=== PATIENT | female | born 1930 | race Caucasian/White ===

== ENCOUNTER 2017-06-02 13:26 | Inpatient (IN) | payer OTHER ==
[2017-06-02 13:42] VITALS: BMI 25.2
--- NOTE | 2017-06-02 13:54 | PDOC ---
Attending Attestation - Resident Resident Name: Evangelista Savage - ED Attending Attestation I have performed the following: I have examined & evaluated the patient, The case was reviewed & discussed with the resident, I agree w/resident's findings & plan, Exceptions are as noted - HPI HPI: 06/02/17 14:20 Fall, Mechanism of injury not available - Physicial Exam PE: 06/02/17 14:21 Awake, Alert, Oriented and Cooperative. Right Hip Pain - Medical Decision Making 06/02/17 14:[address] Savage assessment and pain
[2017-06-02] MEDS ORDERED: morphine CARPU-JECT 2 MG/1 ML DISP.SYRIN IVPUSH ONE ×2 (14:04→14:51)
[2017-06-02] MEDS ORDERED: morphine CARPU-JECT 2 MG/1 ML DISP.SYRIN ONE ×3 (14:11→17:33)
--- NOTE | 2017-06-02 14:19 | PDOC ---
History of Present Illness - General Chief Complaint: Injury Stated Complaint: FALL Time Seen by Provider: 06/02/17 13:42 History Source: Patient Exam Limitations: No Limitations - History of Present Illness Initial Comments: 06/02/17 14:05 86F with glaucoma s/p surgery, distant history colon cancer s/p surgery and chemo (year unknown, before 1999) and HTN here today complaining of a fall. She states that she was unsure of how she fell, she was at the [employer] and then was on the ground. She denies any inciting event or symptom, including chest pain, shortness of breath, nausea, vomiting, or lightheadedness. She states that she did not lose consciousness, but does not remember the entire event. She 's complaining of right hip pain and right shoulder pain. She denies headache and memory loss. 06/02/17 18:40 Contact is Noe Dale: [phone] Past History - Past Medical History Allergies/Adverse Reactions: Allergies Allergy/AdvReac Type Severity Reaction Status Date / Time clindamycin phosphate Allergy Verified 06/02/17 16:02 [From Cleocin] Home Medications: Ambulatory Orders Atenolol [Tenormin -] 100 mg PO DAILY 06/02/17 Esomeprazole Magnesium [Nexium 24Hr] 2 tablet PO DAILY 06/02/17 Furosemide [Lasix] 40 mg PO DAILY 06/02/17 Cancer: Yes (colon ca) HTN: Yes Other medical history: Glaucoma, Bilat. LLE edema - Immunization History Immunization Up to Date: Yes - Psycho/Social/Smoking Cessation Hx Suicidal Ideation: No Smoking History: Unknown if ever smoked Hx Alcohol Use: No Drug/Substance Use Hx: No Substance Use Type: None Review of Systems - Review of Systems Comments:: 06/02/17 14:19 GENERAL/CONSTITUTIONAL: No fever or chills. No weakness. HEAD, EYES, EARS, NOSE AND THROAT: No change in vision. No ear pain or discharge. No sore throat. CARDIOVASCULAR: No chest pain or shortness of breath RESPIRATORY: No cough, wheezing, or hemoptysis. GASTROINTESTINAL: No nausea, vomiting, diarrhea or constipation. GENITOURINARY: No dysuria, frequency, or change in urination. MUSCULOSKELETAL: Pain in right hip and shoulder. No neck or back pain. SKIN: No rash NEUROLOGIC: No headache, vertigo, loss of consciousness, or change in strength/ sensation. ALLERGIC/IMMUNOLOGIC: No hives or skin allergy. *Physical Exam - Vital Signs Last Vital Signs Temp Pulse Resp BP Pulse Ox 97.5 F L 66 20 144/78 96 06/02/17 13:37 06/02/17 13:37 06/02/17 13:37 06/02/17 13:37 06/02/17 13:37 - Physical Exam Comments: 06/02/17 14:22 GENERAL: Awake, alert, and fully oriented, in no acute distress HEAD: No signs of trauma, normocephalic, atraumatic EYES: Right eye 3mm, Left eye 2mm, Reactive to light, EOMI, sclera anicteric, conjunctiva clear ENT: Auricles normal inspection, hearing grossly normal, nares patent, oropharynx clear without exudates. Moist mucosa NECK: Normal ROM, supple, no lymphadenopathy, JVD, or masses LUNGS: No distress, speaks full sentences, clear to auscultation bilaterally HEART: Regular rate and rhythm, normal S1 and S2, no murmurs, rubs or gallops, peripheral pulses normal and equal bilaterally. ABDOMEN: Soft, nontender, normoactive bowel sounds. No guarding, no rebound. No masses R SHOULDER: Tender to palpation, range of motion intact, neurovascularly intact R HIP: Tender to palpation, refuses movement secondary to pain, legs equal length. Leg not rotated. Neurovascularly intact. NEUROLOGICAL: Cranial nerves II through XII grossly intact. Normal speech, no focal sensorimotor deficits SKIN: Warm, Dry, normal turgor, no rashes or lesions noted. Heart Score/ECG Review - History History: Moderately suspicious - Electrocardiogram EKG: Normal - Age Age: >/= 65 - Risk Factors Risk Factors Heart Score: Yes Hx Hypertension - ECG Intrepretation Comment:: 06/02/17 14:34 Normal sinus rhythm and rate. Normal axis. ST inversion in III. No ST elevations. QTc 447. VA 146. ED Treatment Course - LABORATORY CBC & Chemistry Diagram: 06/02/17 14:51 06/02/17 14:51 - RADIOLOGY Radiology Studies Ordered: Category Date Time Status HEAD CT WITHOUT CONTRAST [CT] Stat CT Scan 06/02/17 14:03 Ordered CHEST X-RAY PORTABLE* [RAD] Stat Radiology 06/02/17 14:02 Ordered HIP & PELVIS-RIGHT [RAD] Stat Radiology 06/02/17 14:03 Ordered SHOULDER-RIGHT [RAD] Stat Radiology 06/02/17 14:03 Ordered Medical Decision Making - Medical Decision Making 06/02/17 14:27 86F with history of HTN, cataracts s/p bilateral surgery and colon cancer s/p surgery and chemo here today complaining of a fall. No obvious injury noted. Pupils not equal in size, but reactive and likely secondary to bilateral cataract surgeries. Will do ACS workup with CT head, x-ray of right shoulder and hip. Given 2mg morphine. 06/02/17 15:45 Cr 1.7. Baseline unknown. Given 1L NS. 06/02/17 15:48 An AP view the pelvis reveals no sign of a gross fracture, subluxation bone destruction. The hips appear symmetrical. Significant arthritic changes are not seen. The SI joints are patent with reactive sclerosis. Degenerative changes are noted in the spine with a slight scoliosis. There is urine filled bladder with a nonspecific bowel pattern. Detailed views of the right hip reveal no sign of fracture, subluxation or bone destruction. There are soft tissue vascular calcifications. If symptoms persist, further imaging may be of help. Impression: No acute pathology appreciated CXR, R shoulder are unremarkable. 06/02/17 18:10 CT Pelvis ordered due to patient unable to move right hip. Given 4mg more of morphine. Pelvis CT shows fracture on my read, awaiting official read from radiology for exact description. Head CT: 1. There is no evidence of an acute intracranial process, intracranial hemorrhage or mass effect. 2. Ventricular size is concordant with the degree of atrophy. 3. The visualized portions of the orbits, paranasal and mastoid sinuses are unremarkable. 4. No evidence of fracture. 06/02/17 18:27 1. Mildly displaced fractures of the right superior and inferior pubic rami. The superior pubic ramus fracture is near the junction with the right acetabulum but does not clearly extend into the acetabulum. If further imaging is required, MRI may be helpful. 2. No evidence of fracture of the proximal femurs. 3. Degenerative change lower lumbar spine, SI joints bilaterally and pubic symphysis. 4. Colonic diverticulosis. 06/02/17 18:[address] Saba. No surgery at this time. Pain control and weight bearing as tolerated. Pain still not controlled, given 1mg dilaudid. *DC/Admit/Observation/Transfer Diagnosis at time of Disposition: Fracture of pelvis Qualifiers: Encounter type: initial encounter - Discharge Dispostion Condition at time of disposition: Stable Admit: Yes - Attestations Physician Attestion: 06/02/17 19:04 I, Dr. Evangelista Savage, attest that this document has been prepared under my direction and personally reviewed by me in its entirety. I further attest, that it accurately reflects all work, treatment, procedures and medical decision -making performed by me.
[2017-06-02 15:12] LABS: EOSINOPHIL 1.7 % (0-4.5); MCH 30.7 pg (25.7-33.7); MCHC 32.7 g/dl (32.0-36.0); MEAN CELL VOLUME 93.9 fl (80-96); MEAN PLT VOLUME 8.9 fl (7.5-11.1); NEUTROPHILS 74.6 % (42.8-82.8); PLATELET COUNT 189 K/MM3 (134-434); RDW 13.4 % (11.6-15.6); WHITE BLOOD COUNT 8.8 K/mm3 (4.0-10.0)
[2017-06-02 15:23] LABS: URINE APPEARANCE CLEAR; URINE BILIRUBIN NEGATIVE (NEGATIVE); URINE BLOOD NEGATIVE (NEGATIVE); URINE COLOR COLORLESS; URINE GLUCOSE (UA) NEGATIVE (NEGATIVE); URINE KETONE NEGATIVE (NEGATIVE); URINE LEUK ESTERASE NEGATIVE (NEGATIVE); URINE NITRITE NEGATIVE (NEGATIVE); URINE PROTEIN NEGATIVE (NEGATIVE); URINE UROBILINOGEN NEGATIVE mg/dL (0.2-1.0)
[2017-06-02 15:24] LABS: ANION GAP 6 (8-16); BILIRUBIN,TOTAL 0.4 mg/dL (0.2-1.0); CALCIUM 9.2 mg/dL (8.5-10.1); CO2 29 mmol/L (21-32); CREATININE 1.7 mg/dL (0.55-1.02); GLUCOSE,RANDOM 90 mg/dL (74-106); MAGNESIUM 2.4 mg/dL (1.8-2.4); SGOT/AST 35 U/L (15-37); SGPT/ALT 52 U/L (12-78); TOT PROT 7.3 g/dl (6.4-8.2)
[2017-06-02 15:27] LABS: ALK PHOS 63 U/L (45-117); CPK 202 IU/L (26-192); TROPONIN I < 0.02 ng/ml (0.00-0.05)
[2017-06-02 15:32] LABS: INR 0.94 (0.82-1.09); PROTHROMBIN TIME (PATIENT) 10.3 SEC (9.98-11.88)
[2017-06-02] MEDS ORDERED: SODIUM CHLORIDE 1,000 ML IV STA (15:44)
[2017-06-02] MEDS ORDERED: morphine CARPU-JECT 4 MG/1 ML DISP.SYRIN IVPUSH ONE (15:59)
[2017-06-02] MEDS ORDERED: HYDROmorphone HCL CARPU-JECT 1 MG/1 ML DISP.SYRIN IVPUSH ONE (18:51)
[2017-06-02] MEDS ORDERED: HYDROmorphone HCL CARPU-JECT 1 MG/1 ML DISP.SYRIN ONE (19:00)
--- NOTE | 2017-06-02 19:29 | EKG ---
Test Reason : Blood Pressure : / mmHG Vent. Rate : 065 BPM Atrial Rate : 065 BPM P-R Int : 146 ms QRS Dur : 082 ms QT Int : 430 ms P-R-T Axes : 052 -23 023 degrees QTc Int : 447 ms POOR DATA QUALITY, INTERPRETATION MAY BE ADVERSELY AFFECTED NORMAL SINUS RHYTHM MODERATE VOLTAGE CRITERIA FOR LVH, MAY BE NORMAL VARIANT CANNOT RULE OUT SEPTAL INFARCT , AGE UNDETERMINED ABNORMAL ECG NO PREVIOUS ECGS AVAILABLE Confirmed by PEGGY CASTELAN, JULIO ([id number]) on 06/02/2017 7:29:31 PM Referred By: Confirmed By:JULIO WOODS MD
[2017-06-02] MEDS ORDERED: ONDANSETRON 4 MG/2 ML VIAL IVPUSH ONE (19:37)
--- NOTE | 2017-06-02 19:37 | PDOC ---
*Physical Exam - Vital Signs Last Vital Signs Temp Pulse Resp BP Pulse Ox 97.5 F L 64 20 163/68 98 06/02/17 13:37 06/02/17 17:51 06/02/17 17:51 06/02/17 17:51 06/02/17 17:51 ED Treatment Course - LABORATORY CBC & Chemistry Diagram: 06/02/17 14:51 06/02/17 14:51 - ADDITIONAL ORDERS Additional order review: Laboratory Results 06/02/17 06/02/17 06/02/17 15:02 14:51 14:51 INR 0.94 Sodium 141 Potassium 4.1 Chloride 106 Carbon Dioxide 29 Anion Gap 6 L BUN 25 H Creatinine 1.7 H Creat Clearance w eGFR 28.63 Random Glucose 90 Calcium 9.2 Magnesium 2.4 Total Bilirubin 0.4 AST 35 ALT 52 Alkaline Phosphatase 63 Creatine Kinase 202 H Creatine Kinase Index 1.7 CK-MB (CK-2) 3.538 Troponin I < 0.02 Total Protein 7.3 Albumin 4.0 Urine Color Colorless Urine Appearance Clear Urine pH 6.0 Ur Specific [place] 1.010 Urine Protein Negative Urine Glucose (UA) Negative Urine Ketones Negative Urine Blood Negative Urine Nitrite Negative Urine Bilirubin Negative Urine Urobilinogen Negative Ur Leukocyte Esterase Negative 06/02/17 14:51 RBC 4.43 MCV 93.9 MCHC 32.7 RDW 13.4 MPV 8.9 Neutrophils % 74.6 Lymphocytes % 13.6 Monocytes % 9.1 Eosinophils % 1.7 Basophils % 1.0 - Medications Given in the ED: ED Medications Discontinued Medications Generic Name Dose Route Start Last Admin Trade Name Cortes PRN Reason Stop Dose Admin Hydromorphone HCl 1 mg 06/02/17 18:51 06/02/17 19:13 Dilaudid Injection - IVPUSH 06/02/17 18:52 1 mg ONCE ONE Administration Sodium Chloride 1,000 mls @ 1,000 mls/hr 06/02/17 15:44 06/02/17 17:50 Normal Saline - IV 06/02/17 16:43 1,000 mls/hr ASDIR STA Administration Morphine Sulfate 2 mg 06/02/17 14:04 06/02/17 14:50 Morphine Injection - IVPUSH 06/02/17 14:05 2 mg ONCE ONE Administration Morphine Sulfate 2 mg 06/02/17 14:51 06/02/17 15:59 Morphine Injection - IVPUSH 06/02/17 14:52 2 mg ONCE ONE Administration Morphine Sulfate 4 mg 06/02/17 15:59 06/02/17 17:50 Morphine Injection - IVPUSH 06/02/17 16:00 4 mg ONCE ONE Administration Medical Decision Making - Medical Decision Making 06/02/17 19:36 Patient is an 86 yo F signed out to me by the day team (Dr. Savage) hx of HTN, HLD Dx Pubic rami fx, Difficult pain management (1 mg Dilaudid @ 18:30) Ortho consulted, Medicine notified - Manage pain - Admit to medicine 06/02/17 19:38 Patient complaining of nausea, Checked QC on EKG, Zofran 4mg IV 06/02/17 21:16 Patient pain well managed but still complaining of nausea, Dr. Estrada gave 250 ml NS and Reglan 10 mg Patient accepted by medicine to [facility] inpatient *DC/Admit/Observation/Transfer Diagnosis at time of Disposition: Pelvic fracture Qualifiers: Encounter type: initial encounter Pelvic bone location: unspecified part of pelvis Fracture type: closed Fracture alignment: nondisplaced Qualified Code(s) : S32.9XXA - Fracture of unspecified parts of lumbosacral spine and pelvis, initial encounter for closed fracture - Discharge Dispostion Condition at time of disposition: Stable Admit: Yes - Referrals Referrals: STAFF,NOT ON [Primary Care Provider] - - Patient Instructions - Post Discharge Activity - Attestations Physician Attestion: 06/02/17 21:20 I, Dr. Niles Ramirez, attest that this document has been prepared under my direction and personally reviewed by me in its entirety. I further attest, that it accurately reflects all work, treatment, procedures and medical decision -making performed by me.
[2017-06-02] MEDS ORDERED: ONDANSETRON 4 MG/2 ML VIAL ONE (19:48)
[2017-06-02] MEDS ORDERED: ONDANSETRON 4 MG/2 ML VIAL IVPB PRN (19:57)
[2017-06-02] MEDS ORDERED: morphine CARPU-JECT 4 MG/1 ML DISP.SYRIN IVPUSH PRN ×2 (20:02→20:15)
--- NOTE | 2017-06-02 20:06 | HP ---
Admitting History and Physical - Admission History of Present Illness: 86yo F with past history of HTN and Hyperlipidemia who is presenting to the ED for hip pain s/p mechanical fall in [employer]. Pt states she was walking normally and then was on the ground without any thought. She knows she did not hit her head and she is not on anticoagulation. Denies any bleeding, lightheadedness/dizziness leading up to the fall, urinary incontinence, or SOB leading to the fall. Pt is currently pain controlled, however is nauseous from the pain medications given in the ED. ER Course notable for: 1) Head CT: No evidence of an acute intracranial process/hemorrhage/mass effect. No evidence of fracture. 2) Pelvis CT: Mildly displaced fractures of the right superior and inferior pubic rami; superior pubic ramus fracture is near the junction with the right acetabulum but does not clearly extend into the acetabulum. 3) Morphine 8mg total and Dilaudid 1mg total for pain control administered 4) Dr Saba notified and discussed pt: No surgery at this time. Pain control and weight bearing as tolerated. 5) EKG - NSR @65bpm; no ST abnormalities noted History Source: Patient Limitations to Obtaining History: No Limitations - Past Medical History Cardiovascular: Yes: HTN, Hyperlipdemia - Smoking History Smoking history: Unknown if ever smoked - Alcohol/Substance Use Hx Alcohol Use: No Home Medications - Allergies Allergies/Adverse Reactions: Allergies Allergy/AdvReac Type Severity Reaction Status Date / Time clindamycin phosphate Allergy Verified 06/02/17 16:02 [From Cleocin] - Home Medications Home Medications: Ambulatory Orders Atenolol [Tenormin -] 100 mg PO DAILY 06/02/17 Esomeprazole Magnesium [Nexium 24Hr] 2 tablet PO DAILY 06/02/17 Furosemide [Lasix] 40 mg PO DAILY 06/02/17 Physical Examination Vital Signs: Vital Signs Temperature 97.5 F L 06/02/17 13:37 Pulse Rate 64 06/02/17 17:51 Respiratory Rate 20 06/02/17 17:51 Blood Pressure 163/68 06/02/17 17:51 O2 Sat by Pulse Oximetry (%) 98 06/02/17 17:51 Constitutional: Yes: No Distress, Calm Eyes: Yes: Conjunctiva Clear, EOM Intact, PERRL. No: Sclera Icterus HENT: Yes: Atraumatic, Normocephalic Cardiovascular: Yes: Regular Rate and Rhythm. No: JVD, Murmur Respiratory: Yes: Regular, CTA Bilaterally, On Nasal O2 (2L NC). No: Rales, Rhonchi, SOB, Wheezes Gastrointestinal: Yes: Normal Bowel Sounds, Soft. No: Hepatomegaly, Splenomegaly, Tenderness Edema: No Neurological: Yes: Alert, Oriented Psychiatric: Yes: Alert, Oriented Labs: CBC, BMP 06/02/17 14:51 06/02/17 14:51 Imaging - Results Chest X-ray: Image Reviewed Cat Scan: Image Reviewed EKG: Image Reviewed Assessment/Plan 86yo F pmhx HTN and HPL s/p mechanical fall with no head trauma or bleeding noted. Not on anticoagulation. Nondisplaced pelvic fx of ischial spine on R. 1) Nondisplaced Pelvic fracture of R pubic rami --H/H stable --Pt already discussed with Dr. Saba -- pain control and early ambulation --Physical therapy; will coordinate with pain medication for better compliance --Pain control --Percocet 5/325mg PO q6h PRN for pain 3-7 in scale --Morphine 4mg IVPush PRN for pain 7 or greater --Senna Plus ordered for PRN constipation due to pain medications --Zofran 4mg PRN for narcotic associated nausea 2) Elevated Creatine --No previous records for comparison --Suspect TA in the setting of dehydration --Will trend Cr. --Avoid nephrotoxic agents --Holding home Lasix 40mg PO daily --If persists in morning will trend urine electrolytes 3) HTN --Continue home Atenolol 100mg PO qDaily FEN: Fluids: Not indicated currently; tolerating PO Electrolyte abnormalities: None Nutrition: Regular diet PPX DVT - Heparin 5000U SQ q8 GI - Not indicated currently Dispo: Admit to M/S Visit type - Emergency Visit Emergency Visit: Yes Care time: The patient presented to the Emergency Department on the above date and was hospitalized for further evaluation of their emergent condition. - New Patient This patient is new to me today: Yes Date on this admission: 06/02/17 - Critical Care Critical Care patient: No
[2017-06-02] MEDS ORDERED: DOCUSATE SODIUM 100 MG CAPSULE (FP) PO PRN (20:22)
[2017-06-02] MEDS ORDERED: SENNOSIDES/DOCUSATE COMBO (SENNA PLUS) TABLET (UD) PO PRN (20:22)
[2017-06-02] MEDS ORDERED: SODIUM CHLORIDE 0.9% 500 ML INFUS.BAG IV ONE (20:31)
[2017-06-02] MEDS ORDERED: METOCLOPRAMIDE HCL INJECTION 10 MG/2 ML VIAL IVPB ONE (20:31)
[2017-06-02] MEDS ORDERED: METOCLOPRAMIDE HCL INJECTION 10 MG/2 ML VIAL ONE (20:36)
[2017-06-02] MEDS ORDERED: oxyCODONE HCL 5 MG TABLET PO PRN (20:39)
[2017-06-02] MEDS ORDERED: ACETAMINOPHEN 325 MG TABLET (FP) PO PRN (20:39)
--- NOTE | 2017-06-02 21:57 | PN ---
Teaching Attending Note Name of Resident: Ari Romero ATTENDING PHYSICIAN STATEMENT I saw and evaluated the patient. I reviewed the resident's note and discussed the case with the resident. I agree with the resident's findings and plan as documented. SUBJECTIVE: 86 year old female presents s/p mechanical fall while in [employer]. Patient has poor recollection of events. PMH HTN HLD OBJECTIVE: Vital Signs Temperature 97.5 F L 06/02/17 13:37 Pulse Rate 64 06/02/17 20:18 Respiratory Rate 20 06/02/17 20:18 Blood Pressure 130/61 06/02/17 20:18 O2 Sat by Pulse Oximetry (%) 95 06/02/17 20:18 HENT: Yes: Atraumatic, Normocephalic Cardiovascular: Yes: Regular Rate and Rhythm. No: JVD, Murmur Respiratory: Yes: Regular, CTA Bilaterally, On Nasal O2 (2L NC). No: Rales, Rhonchi, SOB, Wheezes Gastrointestinal: Yes: Normal Bowel Sounds, Soft. No: Hepatomegaly, Splenomegaly, Tenderness Edema: No Neurological: Yes: Alert, Oriented Psychiatric: Yes: Alert, Oriented CBC, BMP 06/02/17 14:51 06/02/17 14:51 Urine Test Results Urine Color Colorless 06/02/17 15:02 Urine Appearance Clear 06/02/17 15:02 Urine pH 6.0 (5.0-8.0) 06/02/17 15:02 Ur Specific [place] 1.010 (1.005-1.025) 06/02/17 15:02 Urine Protein Negative (NEGATIVE) 06/02/17 15:02 Urine Glucose (UA) Negative (NEGATIVE) 06/02/17 15:02 Urine Ketones Negative (NEGATIVE) 06/02/17 15:02 Urine Blood Negative (NEGATIVE) 06/02/17 15:02 Urine Nitrite Negative (NEGATIVE) 06/02/17 15:02 Urine Bilirubin Negative (NEGATIVE) 06/02/17 15:02 Ur Leukocyte Esterase Negative (NEGATIVE) 06/02/17 15:02 CT- Mildly displaced fractures of the right superior and inferior pubic rami; superior pubic ramus fracture is near the junction with the right acetabulum but does not clearly extend into the acetabulum. ASSESSMENT AND PLAN: 1. Pelvic fracture- stable . No need for surgical intervention according to ortho. - pain control as ordered with Percocet - IV morphine prn for breakthrough - PT eval 2. ARF - - possibly secondary to dehydration 3. DVT PPX heparin SC
[2017-06-02] MEDS: HEPARIN NA (PORCINE) 5,000 UNITS/ML 1ML VIAL SQ SCH (23:40)
[2017-06-03] MEDS: oxyCODONE HCL 5 MG TABLET PO PRN ×2 (01:09→06:59)
[2017-06-03] MEDS: ACETAMINOPHEN 325 MG TABLET (FP) PO PRN ×2 (01:10→06:58)
[2017-06-03] MEDS: HEPARIN NA (PORCINE) 5,000 UNITS/ML 1ML VIAL SQ SCH ×3 (05:49→21:20)
[2017-06-03 08:14] LABS: MCH 31.4 pg (25.7-33.7); MCHC 33.4 g/dl (32.0-36.0); MEAN CELL VOLUME 93.9 fl (80-96); MEAN PLT VOLUME 8.6 fl (7.5-11.1); PLATELET COUNT 179 K/MM3 (134-434); RDW 13.3 % (11.6-15.6); WHITE BLOOD COUNT 8.9 K/mm3 (4.0-10.0)
[2017-06-03 08:34] LABS: ANION GAP 7 (8-16); CALCIUM 8.2 mg/dL (8.5-10.1); CO2 28 mmol/L (21-32); CREATININE 1.3 mg/dL (0.55-1.02); GLUCOSE,RANDOM 115 mg/dL (74-106)
--- NOTE | 2017-06-03 09:02 | CON.ORTH ---
Consult Reason for Consultation:: right pelvic fx - Past Medical History Cardio/Vascular: Yes: HTN, Hyperlipdemia - Alcohol/Substance Use Hx Alcohol Use: No - Smoking History Smoking history: Never smoked Home Medications - Allergies Allergies/Adverse Reactions: Allergies Allergy/AdvReac Type Severity Reaction Status Date / Time clindamycin phosphate Allergy Verified 06/02/17 16:02 [From Cleocin] - Home Medications Home Medications: Ambulatory Orders Atenolol [Tenormin -] 100 mg PO DAILY 06/02/17 Esomeprazole Magnesium [Nexium 24Hr] 2 tablet PO DAILY 06/02/17 Furosemide [Lasix] 40 mg PO DAILY 06/02/17 Physical Exam for Ortho Vital Signs: Vital Signs Temperature 97.8 F 06/03/17 05:00 Pulse Rate 64 06/03/17 05:00 Respiratory Rate 20 06/03/17 06:43 Blood Pressure 118/52 06/03/17 05:00 O2 Sat by Pulse Oximetry (%) 96 06/03/17 06:43 Labs: CBC, BMP 06/03/17 07:00 06/03/17 07:00 INR, PTT INR 0.94 (0.82-1.09) 06/02/17 14:51 - Lower Extremity Pelvis: Yes: Right, Limited ROM, Pain, Tenderness, Other (nvi) Imaging - Results X-ray: Report Reviewed, Image Reviewed Assessment/Plan 86yo F with past history of HTN and Hyperlipidemia who is presenting to the ED for hip pain s/p mechanical fall in [employer]. Pt states she was walking normally and then was on the ground without any thought. She knows she did not hit her head and she is not on anticoagulation. Denies any bleeding, lightheadedness/dizziness leading up to the fall, urinary incontinence, or SOB leading to the fall. Pt is currently pain controlled, however is nauseous from the pain medications given in the ED. a/p right superior and inferior pubic rami fx PT eval wbat pain control dvt ppx will follow d/w Dr. Saba
[2017-06-03] MEDS ORDERED: FUROSEMIDE 40 MG TABLET (FP) PO SCH (10:00)
[2017-06-03] MEDS ORDERED: PT OWN MED DRAWER 7, Y5N ONE (10:18)
[2017-06-03] MEDS: PANTOPRAZOLE 40 MG TABLET (FP) PO SCH (10:23)
[2017-06-03] MEDS: ATENOLOL 50 MG TABLET (FP) PO SCH (10:23)
--- NOTE | 2017-06-03 13:18 | PN ---
Teaching Attending Note Name of Resident: Vega Womack ATTENDING PHYSICIAN STATEMENT I saw and evaluated the patient. I reviewed the resident's note and discussed the case with the resident. I agree with the resident's findings and plan as documented. SUBJECTIVE:states that her pain is currently controlled however she has not been out of bed since arrival to the hospital. states she recalls the events of yesterday that she lost her footing while at [employer]. she denies any symptoms prior to or after the fall. denies striking her head, LOC, dizzyness, palpitations, CP, fever, chills, N/V/C/D. no recent changes to her home medications. OBJECTIVE: Last Vital Signs Temp Pulse Resp BP Pulse Ox 97.7 F 59 L 20 120/60 96 06/03/17 09:37 06/03/17 09:37 06/03/17 09:37 06/03/17 09:37 06/03/17 09:00 General NAD CV S1 S2 RRR no murmur/rub/gallop Lungs CTA B/L no wheezing/rales/rhonchi Extremities pelvis stable. pulses 2+ B/L. strength 4/5 RLE and 5/5 LLE. sensation grossly intact ASSESSMENT AND PLAN: 86yo F wtih PMH HTn and dyslipidemia presented to the ER s/p mechanical fall 1. R superior and inferior rami fracture- s/p mechanical fall. ortho evaluated and no indication for intervention at this time. PT eval. pain control. may require [facility]STEL 2. TA- dehydration vs medication induced. on lasix. will hold at this time. trend Cr. unknown baseline. call PMD for old labs. avoid nephrotoxic agents 3. HTN- controlled. monitor while off diuretic. cont atenolol 4. Dyslipidemia- statin 5. DVT ppx- hep sq 6. d/c pending PT eval. home vs CRISTEL
--- NOTE | 2017-06-03 18:25 | PN ---
<Vega Womack - Last Filed: 06/03/17 18:25> Physical Exam: SUBJECTIVE: Patient seen and examined OBJECTIVE: Vital Signs Period Temp Pulse Resp BP Sys/Gallo Pulse Ox Last 24 Hr 97.4 F-98.2 F 57-66 18-20 112-143/52-78 95-96 GENERAL: The patient is awake, alert, and fully oriented, in no acute distress. HEAD: Normal with no signs of trauma. EYES: PERRL, extraocular movements intact, sclera anicteric, conjunctiva clear. No ptosis. ENT: Ears normal, nares patent, oropharynx clear without exudates, moist mucous membranes. NECK: Trachea midline, full range of motion, supple. LUNGS: Breath sounds equal, clear to auscultation bilaterally, no wheezes, no crackles, no accessory muscle use. HEART: Regular rate and rhythm, S1, S2 without murmur, rub or gallop. ABDOMEN: Soft, nontender, nondistended, normoactive bowel sounds, no guarding, no rebound, no hepatosplenomegaly, no masses. EXTREMITIES: 2+ pulses, warm, well-perfused, no edema. NEUROLOGICAL: Cranial nerves II through XII grossly intact. Normal speech, gait not observed. PSYCH: Normal mood, normal affect. SKIN: Warm, dry, normal turgor, no rashes or lesions noted Laboratory Results - last 24 hr 06/03/17 06/03/17 07:00 07:00 WBC 8.9 RBC 3.77 Hgb 11.8 D Hct 35.4 MCV 93.9 MCH 31.4 MCHC 33.4 RDW 13.3 Plt Count 179 MPV 8.6 Sodium 142 Potassium 4.1 Chloride 107 Carbon Dioxide 28 Anion Gap 7 L BUN 24 H Creatinine 1.3 H D Random Glucose 115 H D Calcium 8.2 L Active Medications Generic Name Dose Route Start Last Admin Trade Name Freq PRN Reason Stop Dose Admin Acetaminophen 650 mg 06/02/17 21:01 06/03/17 06:58 Tylenol - PO 650 mg Q6H PRN Administration ANY PAIN BELOW 7 Atenolol 100 mg 06/03/17 10:00 06/03/17 10:23 Tenormin - PO 100 mg DAILY NIDIH Administration Docusate Sodium 100 mg 06/02/17 20:22 Colace - PO BID PRN CONSTIPATION Heparin Sodium (Porcine) 5,000 unit 06/02/17 22:00 06/03/17 15:50 Heparin - SQ 5,000 unit TID NIDHI Administration Morphine Sulfate 4 mg 06/02/17 20:15 Morphine Injection - IVPUSH Q6H PRN Pain 7-10 Ondansetron HCl 4 mg 06/02/17 19:57 06/03/17 11:52 Zofran Injection IVPB 4 mg Q6H PRN Administration NAUSEA Oxycodone HCl 10 mg 06/02/17 21:01 06/03/17 06:59 Roxicodone - PO 10 mg Q6H PRN Administration ANY PAIN BELOW 7 Pantoprazole Sodium 40 mg 06/03/17 10:00 06/03/17 10:23 Protonix - PO 40 mg DAILY NIDHI Administration Senna/Docusate Sodium 1 tablet 06/02/17 20:22 Pericolace - PO BID PRN CONSTIPATION ASSESSMENT/PLAN: <Pasha Andrade - Last Filed: 06/04/17 06:14> Physical Exam: SUBJECTIVE: Patient seen and examined. She was found lying in bed in [facility]. She states that her pain is controlled on her current medication. She complains of itchiness al over her body. Patient states that she has dry skin at home and she has similar itching which is resolved with Vaseline. No shortness of breath , no stridor, no rash, no tongue swelling. Patient denies SOB, chest pain, abdominal pain. OBJECTIVE: Vital Signs Period Temp Pulse Resp BP Sys/Gallo Pulse Ox Last 24 Hr 97.4 F-98.2 F 57-66 18-20 112-143/52-78 95-96 GENERAL: The patient is awake, alert, and fully oriented, in no acute distress. HEAD: Normal with no signs of trauma. EYES: PERRL, extraocular movements intact, sclera anicteric, conjunctiva clear. No ptosis. LUNGS: Breath sounds equal, clear to auscultation bilaterally, no wheezes, no crackles, no accessory muscle use. HEART: Regular rate and rhythm, S1, S2 without murmur, rub or gallop. ABDOMEN: Soft, nontender, nondistended, normoactive bowel sounds, no guarding, no rebound. EXTREMITIES: 2+ pulses, warm, well-perfused, no edema. NEUROLOGICAL: Cranial nerves II through X grossly intact. Normal speech, gait not observed. PSYCH: Normal mood, normal affect. SKIN: Warm, dry, normal turgor, excoriations over both arms consistent with scratching. no erythema, overly dry skin. Laboratory Results - last 24 hr 06/03/17 06/03/17 07:00 07:00 WBC 8.9 RBC 3.77 Hgb 11.8 D Hct 35.4 MCV 93.9 MCH 31.4 MCHC 33.4 RDW 13.3 Plt Count 179 MPV 8.6 Sodium 142 Potassium 4.1 Chloride 107 Carbon Dioxide 28 Anion Gap 7 L BUN 24 H Creatinine 1.3 H D Random Glucose 115 H D Calcium 8.2 L Active Medications Generic Name Dose Route Start Last Admin Trade Name Freq PRN Reason Stop Dose Admin Acetaminophen 650 mg 06/02/17 21:01 06/03/17 06:58 Tylenol - PO 650 mg Q6H PRN Administration ANY PAIN BELOW 7 Atenolol 100 mg 06/03/17 10:00 06/03/17 10:23 Tenormin - PO 100 mg DAILY NIDHI Administration Docusate Sodium 100 mg 06/02/17 20:22 Colace - PO BID PRN CONSTIPATION Heparin Sodium (Porcine) 5,000 unit 06/02/17 22:00 06/03/17 15:50 Heparin - SQ 5,000 unit TID NIDHI Administration Morphine Sulfate 4 mg 06/02/17 20:15 Morphine Injection - IVPUSH Q6H PRN Pain 7-10 Ondansetron HCl 4 mg 06/02/17 19:57 06/03/17 11:52 Zofran Injection IVPB 4 mg Q6H PRN Administration NAUSEA Oxycodone HCl 10 mg 06/02/17 21:01 06/03/17 06:59 Roxicodone - PO 10 mg Q6H PRN Administration ANY PAIN BELOW 7 Pantoprazole Sodium 40 mg 06/03/17 10:00 06/03/17 10:23 Protonix - PO 40 mg DAILY NIDHI Administration Senna/Docusate Sodium 1 tablet 06/02/17 20:22 Pericolace - PO BID PRN CONSTIPATION ASSESSMENT/PLAN: 86yo F pmhx HTN and HPL s/p mechanical fall with no head trauma or bleeding noted. Not on anticoagulation. Nondisplaced pelvic fx of ischial spine on R. 1) Nondisplaced Pelvic fracture of R pubic rami -Pain controlled -Physical therapy; will coordinate with pain medication for better compliance -Pain control -Percocet 5/325mg PO q6h PRN for pain 3-7 in scale -Morphine 4mg IVPush PRN for pain 7 or greater -Senna Plus ordered for PRN constipation due to pain medications -Zofran 4mg PRN for narcotic associated nausea 2) Elevated Creatine -Suspect TA in the setting of dehydration -Will trend Cr. -Avoid nephrotoxic agents -Holding home Lasix 40mg PO daily -If persists in morning will trend urine electrolytes 3) HTN -Continue home Atenolol 100mg PO qDaily FEN: -No indication for fluids at this time -monitor lytes -Regular diet PPX -DVT - Heparin 5000U SQ q8 -GI - Not indicated currently Dispo: -Patient is stable for discharge tomorrow Problem List - Problems (1) Pelvic fracture Code(s): S32.9XXA - FRACTURE OF UNSP PARTS OF LUMBOSACRAL SPINE AND PELVIS, INIT Qualifiers: Encounter type: initial encounter Pelvic bone location: unspecified part of pelvis Fracture type: closed Fracture alignment: nondisplaced Qualified Code(s): S32.9XXA - Fracture of unspecified parts of lumbosacral spine and pelvis, initial encounter for closed fracture Visit type - Emergency Visit Emergency Visit: Yes ED Registration Date: 06/02/17 Care time: The patient presented to the Emergency Department on the above date and was hospitalized for further evaluation of their emergent condition. - New Patient This patient is new to me today: Yes Date on this admission: 06/04/17 - Critical Care Critical Care patient: No
[2017-06-04] MEDS: HEPARIN NA (PORCINE) 5,000 UNITS/ML 1ML VIAL SQ SCH ×3 (05:59→21:40)
[2017-06-04 08:32] LABS: MCH 31.7 pg (25.7-33.7); MCHC 33.6 g/dl (32.0-36.0); MEAN CELL VOLUME 94.3 fl (80-96); RDW 13.7 % (11.6-15.6); WHITE BLOOD COUNT 9.2 K/mm3 (4.0-10.0)
[2017-06-04 09:29] LABS: ANION GAP 7 (8-16); CALCIUM 8.4 mg/dL (8.5-10.1); CO2 28 mmol/L (21-32); CREATININE 1.4 mg/dL (0.55-1.02); GLUCOSE,RANDOM 83 mg/dL (74-106)
[2017-06-04] MEDS: PANTOPRAZOLE 40 MG TABLET (FP) PO SCH (10:05)
[2017-06-04] MEDS: ATENOLOL 50 MG TABLET (FP) PO SCH (10:05)
[2017-06-04] MEDS: ACETAMINOPHEN 325 MG TABLET (FP) PO PRN ×2 (10:06→15:38)
[2017-06-04] MEDS: oxyCODONE HCL 5 MG TABLET PO PRN ×2 (10:06→15:38)
[2017-06-04 10:49] LABS: PLATELET COUNT 168 K/MM3 (134-434)
[2017-06-04 10:50] LABS: PLATELET ESTIMATE ADEQUATE (NORMAL)
--- NOTE | 2017-06-04 14:03 | PN ---
Teaching Attending Note Name of Resident: Pasha Andrade ATTENDING PHYSICIAN STATEMENT I saw and evaluated the patient. I reviewed the resident's note and discussed the case with the resident. I agree with the resident's findings and plan as documented. SUBJECTIVE: Patient complains of pain in right hip and both shoulders. She walked with PT using a walker today. OBJECTIVE: Vital Signs Period Temp Pulse Resp BP Sys/Gallo Pulse Ox Last 24 Hr 97.7 F-98.2 F 57-61 18-18 112-130/54-78 96 HEART: S1S2, RRR LUNGS: Clear ABDOMEN: Soft, non-tender, non-distended, normal BS EXTREMITIES: No edema ASSESSMENT AND PLAN: 86yo F wtih PMH HTn and dyslipidemia presented to the ER s/p mechanical fall 1. R superior and inferior rami fracture- s/p mechanical fall. ortho evaluated and no indication for intervention at this time. PT eval. pain control. may require CRISTEL 2. TA- dehydration vs medication induced. on lasix. will hold at this time. trend Cr. unknown baseline. call PMD for old labs. avoid nephrotoxic agents 3. HTN- controlled. monitor while off diuretic. cont atenolol 4. Dyslipidemia- statin 5. DVT ppx- hep sq 6. d/c pending PT eval. home vs CRISTEL
--- NOTE | 2017-06-04 15:26 | PN ---
Progress Note (short form) - Note Progress Note: AVSS COMFORTABLE CALF SOFT AND NT NVI IMP: IMPROVING PLAN: WBAT, PT, DC PLANNING
--- NOTE | 2017-06-04 19:55 | PN ---
Physical Exam: SUBJECTIVE: Patient seen and examined at bedside. No new complaints. Patient is amenable for placement at [facility] today and talked to the social services technician regarding her options. OBJECTIVE: Vital Signs Period Temp Pulse Resp BP Sys/Gallo Pulse Ox Last 24 Hr 97.9 F-98.2 F 53-60 18-20 118-135/45-70 96-96 GENERAL: The patient is awake, alert, and fully oriented, in no acute distress. HEAD: Normal with no signs of trauma. NECK: Trachea midline, full range of motion, supple. LUNGS: Breath sounds equal, clear to auscultation bilaterally, no wheezes, no crackles, no accessory muscle use. HEART: Regular rate and rhythm, S1, S2 without murmur, rub or gallop. ABDOMEN: Soft, nontender, nondistended, normoactive bowel sounds, no guarding, no rebound. EXTREMITIES: 2+ pulses, warm, well-perfused, no edema. NEUROLOGICAL: Cranial nerves II through X grossly intact. Normal speech, gait not observed. PSYCH: Normal mood, normal affect. SKIN: Warm, dry, normal turgor, no rashes or lesions noted Laboratory Results - last 24 hr 06/04/17 06/04/17 07:45 07:45 WBC 9.2 RBC 3.55 L Hgb 11.2 Hct 33.5 MCV 94.3 MCH 31.7 MCHC 33.6 RDW 13.7 Plt Count 168 MPV 10.0 D Platelet Estimate Adequate Platelet Comment No clumping noted Sodium 141 Potassium 3.6 Chloride 106 Carbon Dioxide 28 Anion Gap 7 L BUN 26 H Creatinine 1.4 H Random Glucose 83 D Calcium 8.4 L Active Medications Generic Name Dose Route Start Last Admin Trade Name Freq PRN Reason Stop Dose Admin Acetaminophen 650 mg 06/02/17 21:01 06/04/17 15:38 Tylenol - PO 650 mg Q6H PRN Administration ANY PAIN BELOW 7 Atenolol 100 mg 06/03/17 10:00 06/04/17 10:05 Tenormin - PO 100 mg DAILY NIDHI Administration Docusate Sodium 100 mg 06/02/17 20:22 Colace - PO BID PRN CONSTIPATION Heparin Sodium (Porcine) 5,000 unit 06/02/17 22:00 06/04/17 14:56 Heparin - SQ 5,000 unit TID NIDHI Administration Morphine Sulfate 4 mg 06/02/17 20:15 Morphine Injection - IVPUSH Q6H PRN Pain 7-10 Ondansetron HCl 4 mg 06/02/17 19:57 06/03/17 11:52 Zofran Injection IVPB 4 mg Q6H PRN Administration NAUSEA Oxycodone HCl 10 mg 06/02/17 21:01 06/04/17 15:38 Roxicodone - PO 10 mg Q6H PRN Administration ANY PAIN BELOW 7 Pantoprazole Sodium 40 mg 06/03/17 10:00 06/04/17 10:05 Protonix - PO 40 mg DAILY NIDHI Administration Senna/Docusate Sodium 1 tablet 06/02/17 20:22 Pericolace - PO BID PRN CONSTIPATION ASSESSMENT/PLAN: 86yo F pmhx HTN and HLD s/p mechanical fall with no head trauma or bleeding noted. Not on anticoagulation. Nondisplaced pelvic fx of ischial spine on R. #Nondisplaced Pelvic fracture of R pubic rami -Pain controlled -Physical therapy; will coordinate with pain medication for better compliance -Pain control -Percocet 5/325mg PO q6h PRN for pain 3-7 in scale -Morphine 4mg IVPush PRN for pain 7 or greater -Senna Plus ordered for PRN constipation due to pain medications -Zofran 4mg PRN for narcotic associated nausea #Elevated Creatine -creatinine -Suspect TA in the setting of dehydration -Will trend Cr. 1.7 -> 1.3 -> 1.4 -Avoid nephrotoxic agents -Holding home Lasix 40mg PO daily #HTN -Continue home Atenolol 100mg PO qDaily FEN: -No indication for fluids at this time -monitor lytes -Regular diet PPX -DVT - Heparin 5000U SQ q8 -GI - Not indicated currently Dispo: -Patient is pending placement in [facility] Problem List - Problems (1) Pelvic fracture Code(s): S32.9XXA - FRACTURE OF UNSP PARTS OF LUMBOSACRAL SPINE AND PELVIS, INIT Qualifiers: Encounter type: initial encounter Pelvic bone location: unspecified part of pelvis Fracture type: closed Fracture alignment: nondisplaced Qualified Code(s): S32.9XXA - Fracture of unspecified parts of lumbosacral spine and pelvis, initial encounter for closed fracture Visit type - Emergency Visit Emergency Visit: Yes ED Registration Date: 06/02/17 Care time: The patient presented to the Emergency Department on the above date and was hospitalized for further evaluation of their emergent condition. - New Patient This patient is new to me today: No - Critical Care Critical Care patient: No
[2017-06-05] MEDS: ACETAMINOPHEN 325 MG TABLET (FP) PO PRN ×2 (05:38→11:44)
[2017-06-05] MEDS: oxyCODONE HCL 5 MG TABLET PO PRN ×2 (05:40→11:43)
[2017-06-05] MEDS: HEPARIN NA (PORCINE) 5,000 UNITS/ML 1ML VIAL SQ SCH (05:51)
[2017-06-05 08:25] LABS: ANION GAP 7 (8-16); CALCIUM 8.5 mg/dL (8.5-10.1); CO2 28 mmol/L (21-32); CREATININE 1.3 mg/dL (0.55-1.02); GLUCOSE,RANDOM 89 mg/dL (74-106)
[2017-06-05] MEDS: ATENOLOL 50 MG TABLET (FP) PO SCH (09:44)
[2017-06-05] MEDS: PANTOPRAZOLE 40 MG TABLET (FP) PO SCH (09:44)
[2017-06-05 10:20] VITALS: BP 122/74; PULSE 62; TEMP 98.4
--- NOTE | 2017-06-05 11:19 | DS ---
Physical Exam: SUBJECTIVE: Patient seen and examined. No new complaints today. OBJECTIVE: Vital Signs Period Temp Pulse Resp BP Sys/Gallo Pulse Ox Last 24 Hr 97.9 F-98.5 F 53-62 18-20 122-148/45-74 95-95 PHYSICAL EXAM GENERAL: The patient is awake, alert, and fully oriented, in no acute distress. HEAD: Normal with no signs of trauma. EYES: PERRL, extraocular movements intact, sclera anicteric, conjunctiva clear. LUNGS: Breath sounds equal, clear to auscultation bilaterally, no wheezes, no crackles, no accessory muscle use. HEART: Regular rate and rhythm, S1, S2 without murmur, rub or gallop. ABDOMEN: Soft, nontender, nondistended, normoactive bowel sounds, no guarding, no rebound. EXTREMITIES: 2+ pulses, warm, well-perfused, no edema. NEUROLOGICAL: Cranial nerves II through X grossly intact. Normal speech, gait not observed. PSYCH: Normal mood, normal affect. SKIN: Warm, dry, normal turgor, no rashes or lesions noted. LABS Laboratory Results - last 24 hr 06/05/17 06:00 Sodium 141 Potassium 3.9 Chloride 106 Carbon Dioxide 28 Anion Gap 7 L BUN 22 H Creatinine 1.3 H Random Glucose 89 Calcium 8.5 HOSPITAL COURSE: Date of Admission:06/02/17 86yo F with past history of HTN and Hyperlipidemia presented to the ED for hip pain s/p mechanical fall in [employer]. She was found to have nondisplaced hip fracture on CT. Her pain was controlled on oxycodone, acetaminophen and morphine. She was seen by Dr. Saba from orthopedic surgery and he opted for medical management at this time. He hospital course was complicated by acute kidney injury with an elevated creatinine which improved after IV hydration. She was instructed to follow up with Dr. saba and her PMD within the next week. She was sent home with percocet to control her pain. Date of Discharge: 06/05/17 Minutes to complete discharge: 35 Discharge Summary Reason For Visit: PELVIC FRACTURE Current Active Problems TA (acute kidney injury) (Acute) Pelvic fracture (Acute) HTN (hypertension) (Chronic) Condition: Improved - Instructions Diet, Activity, Other Instructions: You should continue all of your home medications starting tomorrow. We have given you some medications for pain if you need them. The medication is percocet and should be take n every 6 hours as needed. Do not take more than 6 tablets in a day. A nurse will come to your house to help you with physical therapy. When you go home, you must follow up with your regular doctor within one week. Be sure to also follow up with the orthopedic doctor who saw you in the hospital, Dr. Saba. If you experience fever or chills or your symptoms get worse, please return to the Emergency room. Referrals: Lior Saba MD [Staff Physician] - 1 Week STAFF,NOT ON [Primary Care Provider] - 1 Week (Your primary care physician within one week) Disposition: HOME - Home Medications Comprehensive Discharge Medication List: Ambulatory Orders Atenolol [Tenormin -] 100 mg PO DAILY 06/02/17 Esomeprazole Magnesium [Nexium 24Hr] 2 tablet PO DAILY 06/02/17 Furosemide [Lasix] 40 mg PO DAILY 06/02/17 Oxycodone HCl/Acetaminophen [Percocet 5-325 mg Tablet] 1 tab PO Q6H PRN #40 tablet MDD 6 06/05/17 Problem List - Problems (1) Pelvic fracture Code(s): S32.9XXA - FRACTURE OF UNSP PARTS OF LUMBOSACRAL SPINE AND PELVIS, INIT Qualifiers: Encounter type: initial encounter Pelvic bone location: unspecified part of pelvis Fracture type: closed Fracture alignment: nondisplaced Qualified Code(s): S32.9XXA - Fracture of unspecified parts of lumbosacral spine and pelvis, initial encounter for closed fracture (2) TA (acute kidney injury) Code(s): N17.9 - ACUTE KIDNEY FAILURE, UNSPECIFIED (3) HTN (hypertension) Code(s): I10 - ESSENTIAL (PRIMARY) HYPERTENSION This patient is new to me today: No Emergency Visit: Yes ED Registration Date: 06/02/17 Care time: The patient presented to the Emergency Department on the above date and was hospitalized for further evaluation of their emergent condition. Critical Care patient: No - Discharge Referral Referred to [facility] Med P.C.: No
--- NOTE | 2017-06-05 12:22 | PN ---
Teaching Attending Note Name of Resident: Pasha Andrade ATTENDING PHYSICIAN STATEMENT I saw and evaluated the patient. I reviewed the resident's note and discussed the case with the resident. I agree with the resident's findings and plan as documented. SUBJECTIVE: OBJECTIVE: Vital Signs Period Temp Pulse Resp BP Sys/Gallo Pulse Ox Last 24 Hr 97.9 F-98.5 F 53-62 18-20 122-148/45-74 95-95 ASSESSMENT AND PLAN:
== END 2017-06-05 14:00 | disposition home or self-care (01) | DRG 536 ==
LOC: JER 13:26 → JERBED 21:21 → UNDOADMIN 21:32 → J6S 22:56
PROVIDERS: ADMIT Internal Medicine; ATTEND Internal Medicine
DX: S32.591A Other specified fracture of right pubis, initial encounter for closed fracture (principal); N17.9 Acute kidney failure, unspecified; E86.0 Dehydration; Z85.038 Personal history of other malignant neoplasm of large intestine; I10 Essential (primary) hypertension; E78.5 Hyperlipidemia, unspecified; W18.39XA Other fall on same level, initial encounter; Y93.89 Activity, other specified; Y92.512 Supermarket, store or market as the place of occurrence of the external cause; Y99.8 Other external cause status
CPT/HCPCS: 36415; 70450-TC; 71010-TC; 72192-TC; 73030-TC-RT; 73523-TC; 80048; 80053; 81003; 82553; 83735; 84484; 85025; 85027; 85610; 93005; 93010; 97116-GP; 97161-GP; 99285-25; J1644